=== PATIENT | female | born 1995 | race Caucasian/White ===

== ENCOUNTER 2018-08-02 16:17 | Emergency (ER) | payer SELFPAY ==
[~2018-08-02] VITALS: Ht 167.6 cm; Wt 63.6 kg
[~2018-08-02 16:17] MED LIST: PROAIR HFA0.09 MG/AC IH; PROVENTIL0.09 MG/A1 IH; ZOLOFT 25MG25 MG PO
[2018-08-02 16:21] VITALS: BP 140/77; PULSE 106; TEMP 98.2
== END 2018-08-02 18:00 | disposition home or self-care (01) ==
LOC: COL.ER 16:17
DX: S62.637A Displaced fracture of distal phalanx of left little finger, initial encounter for closed fracture (principal); W23.0XXA Caught, crushed, jammed, or pinched between moving objects, initial encounter; Y92.481 Parking lot as the place of occurrence of the external cause
CPT/HCPCS: Q4021

== ENCOUNTER 2019-02-24 21:50 | Emergency (ER) | payer SELFPAY ==
[~2019-02-24] VITALS: Ht 167.6 cm; Wt 60.5 kg
[2019-02-24 22:06] VITALS: TEMP 97.1
[2019-02-24 23:02] LABS: COLLECTION METHOD CLEAN CATCH
[2019-02-24 23:08] LABS: MUCOUS Present /lpf; PH 5 (5-8); SQUAMOUS EPITHELIAL 0-2 /hpf; URINE APPEARANCE Clear; URINE BACTERIA Rare /hpf; URINE BILIRUBIN Negative (NEGATIVE); URINE BLOOD Negative (NEGATIVE); URINE COLOR Yellow; URINE GLUCOSE Negative (NEGATIVE); URINE KETONE 2+ (NEGATIVE); URINE LEUKOCYTE ESTERASE Negative (NEGATIVE); URINE NITRATE Negative (NEGATIVE); URINE PROTEIN(semi-quant) 1+ (NEGATIVE); URINE UROBILINOGEN Negative (NEGATIVE)
[2019-02-24 23:35] LABS: BASO % 0.3 % (0.0-2.0); EOS % 0.1 % (0-4.0); GRAN # 6.9 (1.4-6.5); HEMATOCRIT 45.5 % (37.0-47.0); HEMOGLOBIN 15.4 g/dl (12.5-16.0); LYMPH # 1.6 (1.2-3.4); LYMPH % 17.1 % (20.0-51.0); MEAN CELL VOLUME 83 fl (80.0-100.0); MEAN CORPUSCULAR HEMOGLOBIN 28 pg (27.0-31.0); MEAN CORPUSCULAR HGB CONC 34 g/dl (33.0-37.0); MEAN PLATELET VOLUME 10.7 fl (7.4-10.4); MONO # 0.7 (0.1-0.6); MONO % 7.2 % (1.7-9.3); PLATELET COUNT 164 K/mm3 (130-400); REDCELL DISTRIBUTION WIDTH-CV 12.8 % (11.5-14.5)
[2019-02-24 23:48] LABS: ALANINE AMINOTRANSFERASE 30 U/L (9-52); ALKALINE PHOSPHATASE 63 U/L (50-136); ANION GAP 12 mmol/L (7-16); AST,SGOT 45 U/L (15-37); BILIRUBIN,TOTAL 0.4 mg/dL (0.0-1.0); BLOOD UREA NITROGEN 8 mg/dL (7-17); CALCIUM 9.3 mg/dL (8.4-10.2); CARBON DIOXIDE 23 mmol/L (22-30); CHLORIDE 101 mmol/L (98-107); CREATININE, serum 0.57 (0.52-1.25); GLUCOSE 86 mg/dL (74-106); POTASSIUM 3.8 mmol/L (3.4-5.0); SODIUM 136 mmol/L (137-145); TOTAL PROTEIN 8.9 gm/dL (6.4-8.2)
[2019-02-24 23:50] LABS: C-REACTIVE PROTEIN < 0.5 mg/dL (0.0-0.9)
[2019-02-25] MEDS ORDERED: ZOFRAN 4MG T4 MG/TAB PO (01:15)
[2019-02-25] MEDS ORDERED: FLAGYL500 MG PO (01:15)
[2019-02-25 01:18] VITALS: BP 95/66; PULSE 75
[2019-02-25] MEDS ORDERED: ZITHROMAX 250M250 MG PO (03:00)
== END 2019-02-25 01:27 | disposition home or self-care (01) ==
LOC: COL.ER 21:50
PROVIDERS: Nurse Practitioner
DX: N76.0 Acute vaginitis (principal); R11.0 Nausea; B96.89 Other specified bacterial agents as the cause of diseases classified elsewhere; J45.909 Unspecified asthma, uncomplicated
CPT/HCPCS: J2405; J7030

== ENCOUNTER 2020-05-06 17:42 | Emergency (ER) | payer SELFPAY ==
[~2020-05-06] VITALS: Ht 167.6 cm; Wt 63.6 kg
[~2020-05-06 17:42] MED LIST changes: +FLAGYL500 MG PO; +PHENERGAN 25 TA25 MG PO; +ZITHROMAX 250M250 MG PO; +ZOFRAN 4MG T4 MG/TAB PO
[2020-05-06 17:45] VITALS: TEMP 96.6
[2020-05-06 18:11] LABS: HEMATOCRIT 42.6 % (37.0-47.0); HEMOGLOBIN 13.8 g/dl (12.5-16.0); MEAN CELL VOLUME 86 fl (80.0-100.0); MEAN CORPUSCULAR HEMOGLOBIN 28 pg (27.0-31.0); MEAN CORPUSCULAR HGB CONC 32 g/dl (33.0-37.0); MEAN PLATELET VOLUME 11.7 fl (7.4-10.4); PLATELET COUNT 211 K/mm3 (130-400); RED BLOOD COUNT 4.93 M/mm3 (4.10-5.30); REDCELL DISTRIBUTION WIDTH-CV 12.5 % (11.5-14.5)
[2020-05-06 18:24] LABS: ALANINE AMINOTRANSFERASE 12 U/L (4-34); ALBUMIN 4.3 gm/dL (3.5-5.0); ALKALINE PHOSPHATASE 52 U/L (50-136); ANION GAP 7 mmol/L (7-16); AST,SGOT 29 U/L (15-37); BILIRUBIN,TOTAL 0.5 mg/dL (0.0-1.0); BLOOD UREA NITROGEN 7 mg/dL (7-17); CALCIUM 8.7 mg/dL (8.4-10.2); CARBON DIOXIDE 25 mmol/L (22-30); CHLORIDE 106 mmol/L (98-107); CREATININE, serum 0.59 (0.52-1.25); GLUCOSE 135 mg/dL (74-106); POTASSIUM 3.3 mmol/L (3.4-5.0); SODIUM 138 mmol/L (137-145); TOTAL PROTEIN 7.3 gm/dL (6.4-8.2)
[2020-05-06 18:34] LABS: ACETAMINOPHEN < 10 ug/mL (10-30); ALCOHOL(ethanol),MEDICAL < 10 mg/dL; SALICYLATE < 1.0 mg/dL
[2020-05-06 18:48] LABS: HYPOCHROMIA 1+; LYMPHOCYTE 46 % (20.0-51.0); NEUTROPHILS 44 % (42.0-75.2)
[2020-05-06 18:51] LABS: SCHISTOCYTES 1+
[2020-05-06 19:01] LABS: TRICYCLIC ANTIDEPRESS URINE NEGATIVE
[2020-05-06 22:01] VITALS: BP 134/75; PULSE 99
[2020-05-08 08:09] LABS: PATHOLOGY DIFF REVIEW OK +
== END 2020-05-06 22:01 ==
LOC: COL.ER 17:42
PROVIDERS: Emergency Medicine
DX: T40.2X2A Poisoning by other opioids, intentional self-harm, initial encounter (principal); R23.0 Cyanosis; R40.4 Transient alteration of awareness
CPT/HCPCS: J2310; J2405; J3480; J7030

== ENCOUNTER 2020-08-16 17:56 | Emergency (ER) | payer SELFPAY ==
[~2020-08-16] VITALS: Ht 167.6 cm; Wt 58.2 kg
[2020-08-16 18:39] LABS: COLLECTION METHOD CLEAN CATCH
[2020-08-16 18:56] LABS: MUCOUS Present /lpf; PH 5 (5-8); URINE APPEARANCE Hazy; URINE BACTERIA Rare /hpf; URINE BILIRUBIN Negative (NEGATIVE); URINE BLOOD 1+ (NEGATIVE); URINE COLOR Yellow; URINE GLUCOSE Negative (NEGATIVE); URINE KETONE Trace (NEGATIVE); URINE LEUKOCYTE ESTERASE Negative (NEGATIVE); URINE NITRATE Negative (NEGATIVE); URINE PROTEIN(semi-quant) 2+ (NEGATIVE); URINE RBC 20-50 /hpf
[2020-08-16 18:59] LABS: STREP SCREEN NEGATIVE
[2020-08-16 19:29] VITALS: BP 117/65; PULSE 96; TEMP 98.8
== END 2020-08-16 19:31 | disposition home or self-care (01) ==
LOC: COL.ER 17:56
PROVIDERS: Physician Assistant
DX: J02.8 Acute pharyngitis due to other specified organisms (principal)

== ENCOUNTER 2020-08-18 15:14 | Emergency (ER) | payer SELFPAY ==
[~2020-08-18] VITALS: Ht 167.6 cm; Wt 56.8 kg
[2020-08-18 15:25] VITALS: BP 103/66; TEMP 99.4
[2020-08-18 16:17] LABS: COLLECTION METHOD CLEAN CATCH
[2020-08-18 16:26] LABS: MUCOUS Present /lpf; PH 5 (5-8); URINE APPEARANCE Hazy; URINE BACTERIA None Seen /hpf; URINE BILIRUBIN Negative (NEGATIVE); URINE BLOOD Negative (NEGATIVE); URINE COLOR Yellow; URINE GLUCOSE Negative (NEGATIVE); URINE KETONE 2+ (NEGATIVE); URINE LEUKOCYTE ESTERASE Negative (NEGATIVE); URINE NITRATE Negative (NEGATIVE); URINE PROTEIN(semi-quant) 1+ (NEGATIVE); URINE RBC 0-2 /hpf; URINE UROBILINOGEN Negative (NEGATIVE)
[2020-08-18 16:42] LABS: MONOSCREEN NEGATIVE
[2020-08-18 17:19] LABS: HIV 1/2 Antibodies Non-Reactive; HIV-1p24 Antigen Non-Reactive
[2020-08-18] MEDS ORDERED: CEPHALEXIN500 M1 PO (17:24)
[2020-08-18] MEDS ORDERED: ZOFRAN ODT4 MG PO (17:29)
[2020-08-18 17:53] VITALS: PULSE 67
== END 2020-08-18 17:54 ==
LOC: COL.ER 15:14
PROVIDERS: Physician Assistant
DX: J02.8 Acute pharyngitis due to other specified organisms (principal); F17.210 Nicotine dependence, cigarettes, uncomplicated; Z11.3 Encounter for screening for infections with a predominantly sexual mode of transmission
CPT/HCPCS: J0696

== ENCOUNTER 2020-12-25 12:21 | Emergency (ER) | payer SELFPAY ==
[~2020-12-25] VITALS: Ht 167.6 cm; Wt 50.0 kg
[~2020-12-25 12:21] MED LIST changes: +CEPHALEXIN500 M1 PO; +ZOFRAN ODT4 MG PO
[2020-12-25 12:29] VITALS: TEMP 98
[2020-12-25 13:15] LABS: COLLECTION METHOD CLEAN CATCH
[2020-12-25 13:22] LABS: BASO % 0.3 % (0.0-2.0); EOS % 0.2 % (0-4.0); GRAN % 78.1 % (42.2-75.2); HEMATOCRIT 47.5 % (37.0-47.0); HEMOGLOBIN 16.6 g/dl (12.5-16.0); LYMPH # 1.6 K/mm3 (1.2-3.4); LYMPH % 13.7 % (20.0-51.0); MEAN CELL VOLUME 81 fl (80.0-100.0); MEAN CORPUSCULAR HEMOGLOBIN 28 pg (27.0-31.0); MEAN CORPUSCULAR HGB CONC 35 g/dl (33.0-37.0); MEAN PLATELET VOLUME 11.9 fl (7.4-10.4); MONO # 0.8 K/mm3 (0.1-0.6); MONO % 7.3 % (1.7-9.3); PLATELET COUNT 210 K/mm3 (130-400); RED BLOOD COUNT 5.86 M/mm3 (4.10-5.30); REDCELL DISTRIBUTION WIDTH-CV 11.9 % (11.5-14.5)
[2020-12-25 13:29] LABS: MUCOUS Present /lpf; PH 6 (5-8); SQUAMOUS EPITHELIAL 20-50 /hpf; URINE APPEARANCE Cloudy; URINE BACTERIA Occasional /hpf; URINE BILIRUBIN Negative (NEGATIVE); URINE BLOOD 2+ (NEGATIVE); URINE COLOR Amber; URINE GLUCOSE Negative (NEGATIVE); URINE KETONE 2+ (NEGATIVE); URINE LEUKOCYTE ESTERASE Trace (NEGATIVE); URINE NITRATE Negative (NEGATIVE); URINE PROTEIN(semi-quant) 1+ (NEGATIVE)
[2020-12-25 13:42] LABS: ALBUMIN 4.5 gm/dL (3.5-5.0); BILIRUBIN,TOTAL 1.6 mg/dL (0.2-1.2); CALCIUM 9.8 mg/dL (8.4-10.2); CREATININE, serum 0.8 mg/dL (0.57-1.11)
[2020-12-25] MEDS ORDERED: ZOFRAN ODT4 MG PO ×3 (14:26→21:06)
[2020-12-25 14:42] VITALS: BP 117/62; PULSE 83
== END 2020-12-25 14:42 | disposition home or self-care (01) ==
LOC: COL.ER 12:21
PROVIDERS: Emergency Medicine
DX: R11.2 Nausea with vomiting, unspecified (principal); D72.829 Elevated white blood cell count, unspecified; R71.8 Other abnormality of red blood cells; J45.909 Unspecified asthma, uncomplicated; Z87.891 Personal history of nicotine dependence; Z20.822 Contact with and (suspected) exposure to COVID-19
CPT/HCPCS: J2405; J7030

== ENCOUNTER 2021-05-21 05:34 | Emergency (ER) | payer SELFPAY ==
[~2021-05-21] VITALS: Ht 167.6 cm; Wt 59.1 kg
[2021-05-21 05:59] LABS: HEMATOCRIT 44.8 % (37.0-47.0); HEMOGLOBIN 15.3 g/dl (12.5-16.0); MEAN CELL VOLUME 82 fl (80.0-100.0); MEAN CORPUSCULAR HEMOGLOBIN 28 pg (27-31); MEAN CORPUSCULAR HGB CONC 34 g/dl (33.0-37.0); MEAN PLATELET VOLUME 11.1 fl (7.4-10.4); PLATELET COUNT 194 K/mm3 (130-400); REDCELL DISTRIBUTION WIDTH-CV 13.3 % (11.5-14.5)
[2021-05-21 06:26] LABS: C-REACTIVE PROTEIN 0.62 mg/dL (0.00-0.50); CALCIUM 9.6 mg/dL (8.4-10.2); CREATININE, serum 0.86 mg/dL (0.57-1.11); POTASSIUM 3.8 mmol/L (3.5-4.5); TOTAL PROTEIN 8.7 gm/dL (6.2-8.1)
[2021-05-21 06:30] LABS: LYMPHOCYTE 6 % (20.0-51.0); NEUTROPHILS 87 % (42.0-75.2); PLATELET ESTIMATE NORMAL (NORMAL)
[2021-05-21 09:51] LABS: COLLECTION METHOD CLEAN CATCH
[2021-05-21 10:03] LABS: MUCOUS Present (NOT PRESENT); PH 5 (5-8); URINE APPEARANCE Hazy (CLEAR/HAZY); URINE BACTERIA None Seen /hpf (NONE SEEN); URINE BILIRUBIN Negative (NEGATIVE); URINE BLOOD Negative (NEGATIVE); URINE COLOR Yellow (YELLOW); URINE GLUCOSE Negative (NEGATIVE); URINE KETONE 2+ (NEGATIVE); URINE LEUKOCYTE ESTERASE Negative (NEGATIVE); URINE NITRATE Negative (NEGATIVE); URINE PROTEIN(semi-quant) 2+ (NEGATIVE); URINE UROBILINOGEN Negative (NEGATIVE)
[2021-05-21 10:49] VITALS: BP 101/51; PULSE 106; TEMP 98.1
== END 2021-05-21 10:49 | disposition home or self-care (01) ==
LOC: COL.ER 05:34
PROVIDERS: Emergency Medicine; Family Medicine
DX: E86.0 Dehydration (principal); K92.0 Hematemesis; R00.0 Tachycardia, unspecified; Z20.822 Contact with and (suspected) exposure to COVID-19
CPT/HCPCS: C9113; J1790; J1885; J2405; J2765; J7030; J7120

== ENCOUNTER 2022-01-20 08:03 | Emergency (ER) | payer SELFPAY ==
[~2022-01-20] VITALS: Ht 167.6 cm; Wt 50.0 kg
[~2022-01-20 08:03] MED LIST changes: +MAALOX ADVANCE148 ML PO
[2022-01-20 08:16] VITALS: TEMP 98.4
[2022-01-20 09:04] LABS: BASO % 0.3 % (0.0-2.0); EOS % 0.3 % (0.0-4.0); GRAN # 7.2 K/mm3 (1.4-6.5); GRAN % 72.9 % (42.2-75.2); HEMATOCRIT 46.7 % (37.0-47.0); HEMOGLOBIN 16.4 g/dl (12.5-16.0); LYMPH # 1.7 K/mm3 (1.2-3.4); LYMPH % 17.2 % (20.0-51.0); MEAN CELL VOLUME 79 fl (80.0-100.0); MEAN CORPUSCULAR HEMOGLOBIN 28 pg (27-31); MEAN CORPUSCULAR HGB CONC 35 g/dl (33.0-37.0); MEAN PLATELET VOLUME 11.2 fl (7.4-10.4); MONO # 0.9 K/mm3 (0.1-0.6); PLATELET COUNT 171 K/mm3 (130-400); RED BLOOD COUNT 5.88 M/mm3 (4.10-5.30); REDCELL DISTRIBUTION WIDTH-CV 11.6 % (11.5-14.5)
[2022-01-20 09:24] LABS: ALBUMIN 4.4 gm/dL (3.5-5.0); CALCIUM 9.4 mg/dL (8.4-10.2); CREATININE, serum 0.73 mg/dL (0.57-1.11); TOTAL PROTEIN 8.1 gm/dL (6.2-8.1)
[2022-01-20 09:33] LABS: BILIRUBIN,TOTAL 0.7 mg/dL (0.2-1.2)
[2022-01-20] MEDS ORDERED: K-DUR20 MEQ PO (10:13)
[2022-01-20 10:30] VITALS: BP 122/95; PULSE 81
== END 2022-01-20 10:30 | disposition home or self-care (01) ==
LOC: COL.ER 08:03
PROVIDERS: Emergency Medicine
DX: R11.2 Nausea with vomiting, unspecified (principal); R10.13 Epigastric pain; R00.0 Tachycardia, unspecified; E87.1 Hypo-osmolality and hyponatremia; E87.6 Hypokalemia; Z32.02 Encounter for pregnancy test, result negative; Z28.310 Unvaccinated for COVID-19; Z87.891 Personal history of nicotine dependence
CPT/HCPCS: J2405; J7030